=== PATIENT | male | born 1995 | race African-American/Black ===

== ENCOUNTER 2023-07-17 08:22 | Outpatient (AMB) | payer MEDICAID, SELFPAY ==
[2023-07-17 08:35] VITALS: PULSE 54; O2SAT 100; BMI 24.8
--- NOTE | 2023-07-17 08:35 | A.OFFVIS_ITS ---
Intake Vital Signs 07/17/23 08:35 Height 5 ft 4 in Weight 144 lb 4 oz BMI 24.8 Pulse 54 Pulse Source Pulse Oximeter Pulse Oximetry (%) 100 Oxygen Delivery Method Room Air Intake Visit Reasons: ENP-CONVULSIONS - Confirmed Intake Note: Patient presents for convulsions. Allergies No Known Allergies Allergy (Verified 07/17/23 08:38) HPI HPI Comments History of Present Illness Details 27 y/o male patient with intellectual di sability presents for new in-person visit to manage seizure. Pt is accompanied by his brother who helped patient's history. Pt's had the first seizure at his age 4 or 5, and managed by his customer assistance representative. Per pt's brother, pt was born full term, but he was weak and sick, not sure what was the problem. He remembers that patient had grand mal seizure, and the last seizure was at age 17. Pt' s brother does not remember what medication patient used. He has not taking any seizure medication since 20 years old. His customer assistance representative left his practice, and he does not have record. Pt currently takes clonidine 0.1 mg qHS for sleep and rispridone 1 mg BID for drooling. He was referred to [facility] for agitation. [facility] Family History (Updated 07/17/23 @ 08:40 by ANASTASIYA Gordon) Mother HTN (hypertension) Hyperlipidemia Social History (Updated 07/17/23 @ 08:40 by ANASTASIYA Gordon) Alcohol intake: never Patient Tobacco Use Status: Never used Tobacco Use of substances other than those prescribed or required for medical reasons: No Review of Systems Const All systems reviewed & are unremarkable except as noted in HPI and below ENT Reports Normal hearing present Neuro Reports Normal hearing present and Reports Abnormal speech present Physical Exam Vital Signs: Last Vital Signs Pulse 54 07/17/23 08:35 Pulse Ox 100 07/17/23 08:35 Oxygen Delivery Method Room Air 07/17/23 08:35 BMI result Body Mass Index 24.8 Const Other: Difficulty understanding and following direction. Mild right upper and lower extremities weakness. Has circumduction gait. Mild posturing hands tremor. Resting tongue protrusion. Nutritional Appearance: average body habitus Neck Neck: Yes full ROM and Yes supple Resp Effort & Inspection: normal respiratory effort Neuro General: moves all extremities Cranial nerves: Yes Bilaterally intact EOM present, Yes Symmetric palate elevation present, Yes Normal hearing present, Yes Ability to bilaterally rotate head present and Yes Ability to bilaterally elevate shoulders present Speech: Abnormal speech present Motor exam (neuro): 5/5 motor strength present throughout (right upper and lower extremities 4/5.) Psych Appearance: grossly normal Attitude: cooperative Assessment & Plan Assessment & Plan (1) Hx of seizure disorder: Code(s): Z86.69 - Personal history of other diseases of the nervous system and sense organs Plan Patient has been seizure free for 10 years, not on any medications for seizure at this time. Advised to follow up with [facility] for agitation. Will f/u as needed. Coding Level of Care Code New Pt Level 3 (86798) Diagnoses Hx of seizure disorder Z86.69
== END 2023-07-17 09:05 | disposition home or self-care (01) ==
PROVIDERS: PCP Physician Assistant Medical; Visit Provider Nurse Practitioner Family
DX: Z86.69 Personal history of other diseases of the nervous system and sense organs (principal)
CPT/HCPCS: 99203

== ENCOUNTER → 2023-07-17 08:22 | Outpatient (BNVA) | payer MEDICAID, SELFPAY | PROVIDERS: PCP Physician Assistant Medical; Visit Provider Nurse Practitioner Family | DX: Z86.69 Personal history of other diseases of the nervous system and sense organs (principal) | CPT/HCPCS: 99212 ==